=== PATIENT | male | born 1980 | race Caucasian/White ===

== ENCOUNTER 2025-06-21 16:21 | Emergency (ER) | payer OTHER, SELFPAY ==
[2025-06-21 16:25] VITALS: BP 148/96
--- NOTE | 2025-06-21 18:12 | ED.GENMED ---
History of Present Illness
General
Chief Complaint: Eye Problems
Source: patient
Exam Limitations: none
Time Seen by Provider: 06/21/25 17:05
Nursing documentation reviewed up to this point in time: agreed with
History of Present Illness
History of Present Illness:
Patient is a healthy 44-year-old male who presents to the emergency department for evaluation of right eyelid pain. He states that he woke up this morning and his right eye was 'nearly swollen shut'. Last night, he does state that he felt a
'sensation' in a similar area however did not notice any visual abnormality at that time. He states that throughout the day the swelling has gone down however he does have pain localized to his right eyelid. He denies any pain of the eye itself
and states it is very much local to the eyelid. He denies any changes in his vision. He denies any fever or headache. He denies any other URI symptoms including nasal congestion, cough, sore throat.
Patient has not had any new products or exposures. No recent falls or trauma.
Review of Systems
Review of Systems
Allergies reviewed?: Yes
All Other Systems: ROS reviewed and negative except as documented in HPI and ROS
Phy Exam
Physical Exam
Physical Exam:
Vitals: Hypertensive, otherwise vital signs stable. Afebrile
General: Patient is well appearing, no acute distress
Skin: Warm and dry, no rashes or lesions
Head: Normocephalic, atraumatic
Eyes: No proptosis bilaterally. Mild swelling and erythema localized to superior lid margin of right eye. No tenderness over lacrimal ducts. No periorbital swelling, erythema, or tenderness bilaterally. No chemosis, injection, or exudate
bilaterally. No tenderness of sinuses
Throat: Protecting airway
Neck: Normal ROM, no cervical spine tenderness
Cardiac: Regular rate
Pulm: No apparent respiratory distress
Abdomen: Nondistended
Extremities: No evidence of cyanosis or edema
Neuro: Grossly intact
Psychiatric: Normal affect.
Sepsis
Sepsis Screening
Sepsis Assessment: Sepsis Ruled Out
Sepsis Screen
Sepsis Screen: Sepsis Ruled Out
Date: 06/21/25
Time: 17:30
Course
Vital Signs
Initial and Last Documented VS:
Initial Vital Signs
Pulse Resp BP Pulse Ox
96 16 148/96 98
06/21/25 16:25 06/21/25 16:25 06/21/25 16:25 06/21/25 16:25
Last Documented Vital Signs
Pulse Resp BP Pulse Ox
96 16 148/96 98
06/21/25 16:25 06/21/25 16:25 06/21/25 16:25 06/21/25 23:19
MDM/Problems Addressed
Differential Diagnosis Includes:
Not limited to: Blepharitis, hordeolum, chalazion, dacryocystitis, preseptal cellulitis, orbital cellulitis, conjunctivitis, etc.
MDM/Problems Addressed:
44-year-old male with localized erythema, edema, and tenderness of right superior lid margin. Symptoms started today and not associated with fever, headache, visual changes. Vitals stable. On exam, patient appears well and nontoxic. There is very
localized area of erythema, edema, and tenderness at superior lid margin of right eye. No conjunctival erythema. No periorbital edema or erythema. No proptosis. No pain with extraocular movements.
Impression is likely blepharitis. No evidence of dacryocystitis or stye. No surrounding periorbbita erythema to suggest a preseptal cellulitis or other symptoms concerning for an orbital cellulitis.
Advised supportive care with warm compresses, gentle massage. Will start patient on topical anabiotic and advise very strict return precautions. He will follow up with his eye doctor in a few days.
Chronic conditions affecting care:
N/A
Acute Exacerbation and/or Progression of Chronic Illness:
N/A
*Pulse Oximetry
SaO2: 98
Oxygen Mode of Delivery: Room air
Patient hypoxic: no
*EKG
Interpreted by ED Provider?: NA
*Statistical Technician Interpretation
Rate: Statistical Technician- N/A
*Critical Care Note
Total Time (30-74mins, 75-104mins- exclusive of procedures): Not Applicable
ED Attending Note
-
Portions of this chart may have been created with voice recognition software.� Occasional wrong word or��sound alike� substitutions may have occurred due to the inherent limitations of voice recognition software.
Discharge Plan
Departure
Patient Disposition: Home (Routine Discharge)
Date of Disposition: 06/21/25
Time of Disposition: 17:45
Patient with high blood pressure during this ER visit?: Yes
Condition: Good
Discharge Problem:
Blepharitis of eyelid of right eye
Instructions: Blepharitis, BLOOD PRESSURE
Prescriptions:
New
erythromycin 5 mg/gram (0.5 %) ointment
1 applic ophthalmic (eye) QHS 14 Days Qty: 3.5 0RF
Referrals:
Richardson Goode MD [Family Provider, Internal Medicine] - Follow up in 2-3 days
Activity Restrictions/Additional Instructions:
RETURN TO THE EMERGENCY DEPARTMENT WITH ANY FEVER, WORSENING IN PAIN, SWELLING, REDNESS OF RIGHT EYELID, PAIN WITH EYE MOVEMENTS, HEADACHE, VISUAL CHANGES, WORSENING SYMPTOMS, OR OTHER CONCERNS
- As discussed�please apply warm compress to affected eye 2-4 times a day X 5 to 10 minutes. Following warm compress, please gently massage eyelid using washcloth. Wash eyelids gently with warm water daily.
- Apply antibiotic ointment to affected eyelid once daily at bedtime for 2 weeks.
- You can take Tylenol and/or Motrin as needed for pain.
- Follow-up with your primary care provider or eye doctor in few days for further evaluation to ensure that symptoms are improving. If symptoms worsen you may require oral antibiotics.
Monitor your symptoms closely return to the emergency department with any acute worsening/new symptoms or any other concerns
Interventions
Interventions:
*Risk Screen - Suicide Last Done: 06/21/25 16:25
*Neglect/Abuse Screening Last Done: 06/21/25 16:25
*Nursing Disposition Last Done: 06/21/25 18:18
Discharge Date and Time
Discharge Date/Time: 06/21/25 18:19
Print Language: CAMEROONIAN
== END 2025-06-21 18:19 | disposition home or self-care (01) ==
LOC: EMR 16:21
PROVIDERS: EMERGENCY PHYSICIAN Emergency Medicine; FAMILY PHYSICIAN Internal Medicine
DX: H01.001 Unspecified blepharitis right upper eyelid (principal); R03.0 Elevated blood-pressure reading, without diagnosis of hypertension
CPT/HCPCS: 99282